=== PATIENT | male | born 1960 | race Two or more races ===

== ENCOUNTER 2017-02-06 11:47 | Emergency (ER) | payer SELFPAY ==
[~2017-02-06] VITALS: Ht 182.9 cm; Wt 113.4 kg
[2017-02-06 12:37] VITALS: BP 143/93
== END 2017-02-06 12:58 | disposition home or self-care (01) ==
LOC: ER 11:47
DX: H52.7 Unspecified disorder of refraction (principal); Z88.6 Allergy status to analgesic agent